=== PATIENT | female | born 1995 | race Two or more races ===

== ENCOUNTER 2022-02-25 00:46 | Emergency (ER) | payer MEDICAID, OTHER ==
[~2022-02-25] VITALS: Ht 162.6 cm; Wt 79.5 kg
[2022-02-25] MEDS ORDERED: CLINDAMYCIN 900MG IV 50 ML IV ONE (01:30)
[2022-02-25 02:29] LABS: Basophils # (auto) 0.1 10 ^3/uL (0-0.2); Basophils % (auto) 1.1 % (0.0-2.0); Eosinophils # (auto) 0.7 10 ^3/uL (0-0.8); Eosinophils % (auto) 7.9 % (0.0-7.0); Hematocrit 37.9 % (36.0-46.0); Hemoglobin 13.1 g/dL (12.2-16.2); Lymphocytes # (auto) 3.3 10 ^3/uL (0.4-5.4); Lymphocytes % (auto) 36.8 % (10.0-50.0); Mean Corpuscular Hemoglobin 28.7 pg (28.0-32.0); Mean Corpuscular Hgb Conc. 34.6 g/dL (32.0-36.0); Mean Corpuscular Volume 83.1 fL (80.0-100.0); Monocytes # (auto) 0.5 10 ^3/uL (0-1.3); Monocytes % (auto) 6.1 % (0.0-12.0); Neutrophils # (auto) 4.3 10 ^3/uL (1.6-8.6); Neutrophils % (auto) 48.1 % (37.0-80.0); Nucleated Red Blood Cells % 0.1 %; Red Blood Cells 4.56 10^6/uL (4.0-5.20); Red Cell Distribution Width 17.8 % (11.8-14.3); White Blood Cell 8.8 10^3/uL (4.4-10.8)
[2022-02-25 02:48] LABS: Potassium 4.2 mmol/L (3.5-5.1)
[2022-02-25 02:53] LABS: Albumin 3.7 g/dL (3.4-5.0); BUN/Creatinine Ratio 22.7; Calcium 8.9 mg/dL (8.5-10.1)
[2022-02-25 02:55] LABS: Bilirubin, Total 0.3 mg/dL (0.2-1.0); Total Protein 7.7 g/dL (6.4-8.2)
[2022-02-25 03:07] LABS: CRP High Sensitivity 0.607 mg/dL (< 0.3)
[2022-02-25] MEDS ORDERED: CLIN300C8 PO (04:20)
[2022-02-25] MEDS ORDERED: HYDROcodone-ACET 5/325MG TAB PO ONE (04:30)
[2022-02-25 06:15] VITALS: BP 122/77
== END 2022-02-25 04:22 | disposition home or self-care (01) ==
LOC: ER 00:50
DX: L03.114 Cellulitis of left upper limb (principal)
CPT/HCPCS: 36415; 73080; 80053; 85025; 86141; 96365; 99284; J3490

== ENCOUNTER → 2022-02-25 | Emergency (ER) | payer MEDICAID ==
[~2022-02-25] VITALS: Ht 162.6 cm; Wt 79.1 kg
[~2022-02-25] MED LIST: CLIN300C8 PO; HYDROcodone-ACET 10/325MG TAB PO ONE
[2022-02-25 13:12] VITALS: BP 134/71
[2022-02-25 13:48] LABS: Basophils # (auto) 0 10 ^3/uL (0-0.2); Basophils % (auto) 0.3 % (0.0-2.0); Eosinophils # (auto) 0.6 10 ^3/uL (0-0.8); Hematocrit 40.3 % (36.0-46.0); Hemoglobin 13.2 g/dL (12.2-16.2); Lymphocytes # (auto) 2.2 10 ^3/uL (0.4-5.4); Lymphocytes % (auto) 31.3 % (10.0-50.0); Mean Corpuscular Hemoglobin 27.7 pg (28.0-32.0); Mean Corpuscular Hgb Conc. 32.8 g/dL (32.0-36.0); Mean Corpuscular Volume 84.4 fL (80.0-100.0); Monocytes # (auto) 0.4 10 ^3/uL (0-1.3); Monocytes % (auto) 5.3 % (0.0-12.0); Neutrophils # (auto) 3.7 10 ^3/uL (1.6-8.6); Neutrophils % (auto) 54.1 % (37.0-80.0); Red Blood Cells 4.77 10^6/uL (4.0-5.20); Red Cell Distribution Width 18.1 % (11.8-14.3); White Blood Cell 6.9 10^3/uL (4.4-10.8)
[2022-02-25 14:04] LABS: Albumin 3.5 g/dL (3.4-5.0); BUN/Creatinine Ratio 20.5; Calcium 8.5 mg/dL (8.5-10.1); Potassium 3.6 mmol/L (3.5-5.1)
[2022-02-25 14:07] LABS: Bilirubin, Total 0.4 mg/dL (0.2-1.0); Total Protein 7.6 g/dL (6.4-8.2)
== END | disposition home or self-care (01) ==
LOC: ER 12:56
DX: L03.114 Cellulitis of left upper limb (principal); Z79.2 Long term (current) use of antibiotics
CPT/HCPCS: 36415; 80053; 85025

== ENCOUNTER 2022-04-21 10:29 | Emergency (ER) | payer MEDICAID ==
[~2022-04-21] VITALS: Ht 162.6 cm; Wt 81.0 kg
[~2022-04-21 10:29] MED LIST changes: -HYDROcodone-ACET 10/325MG TAB PO ONE
[2022-04-21 11:29] VITALS: BP 115/75
[2022-04-21] MEDS ORDERED: ONDANSETRON ODT 4 MG TAB PO ONE (11:45)
[2022-04-21] MEDS ORDERED: KETOROLAC TROMETH 60MG/2ML VIAL IM ONE (11:45)
[2022-04-21] MEDS ORDERED: HYDROcodone-ACET 10/325MG TAB PO ONE (12:45)
[2022-04-21] MEDS ORDERED: PROMETHAZINE HCL 25 MG/ML 1ML IM ONE (12:45)
== END 2022-04-21 13:42 | disposition home or self-care (01) ==
LOC: ER 10:29
DX: G43.909 Migraine, unspecified, not intractable, without status migrainosus (principal)
CPT/HCPCS: 96372; 99284; J1885; J2550; Q0162